=== PATIENT | male | born 1955 ===

== ENCOUNTER 2018-03-03 09:53 | Inpatient (IN) ==
[2018-03-04] MEDS ORDERED: DEXTROSE 50% 25 GM/50 ML SYRINGE IV PRN (11:03)
[2018-03-04] MEDS ORDERED: GLUCAGON 1 MG VIAL IM PRN (11:05)
[2018-03-04] MEDS: SODIUM CHLORIDE 0.9% 1,000 ML IV SCH (11:15)
[2018-03-04] MEDS: tiZANidine 4 MG TABLET PO SCH ×3 (11:15→17:36)
[2018-03-04] MEDS ORDERED: ZALEPLON 5 MG CAPSULE PO PRN (17:39)
[2018-03-04] MEDS: INSULIN REGULAR 100 UNIT/ML SUBCUT SCH (21:52)
[2018-03-05] MEDS: tiZANidine 4 MG TABLET PO SCH ×4 (06:21→17:54)
[2018-03-05] MEDS: INSULIN REGULAR 100 UNIT/ML SUBCUT SCH ×4 (07:35→21:10)
[2018-03-05] MEDS: SIMVASTATIN 20 MG TABLET PO SCH (09:17)
[2018-03-05] MEDS: TAMSULOSIN 0.4 MG CAPSULE PO SCH (09:17)
[2018-03-05] MEDS: LISINOPRIL 20 MG TABLET PO SCH (09:17)
[2018-03-05 10:29] LABS: Basophils % 0.7 % (0.0-0.8); Eosinophils # 0.3 10*3/uL (0.0-0.87); Eosinophils % 4.9 % (0.00-10.9); Hematocrit 35.2 VOL% (42.0-52.0); Hemoglobin 11.2 GM/DL (14.0-18.0); Immature Granulocytes % 0.3 %; Immature Granulocytes Absolute 0.02 #; Lymphocytes # 1.2 10*3/uL (1.4-4.0); Lymphocytes % 19.8 % (21.2-54.2); Mean Corpuscular HGB Conc 31.8 GM/DL (32-36); Mean Corpuscular Hemoglobin 27 PG (27-34); Mean Corpuscular Volume 83.6 FL (87-102); Mean Platelet Volume 9.5 FL (9.6-12.0); Monocytes # 0.6 10*3/uL (0.11-0.8); Monocytes % 10.3 % (1.7-12.7); Neutrophils # 3.9 10*3/uL (1.4-7.4); Platelet Count 223 T/CUMM (130-400); Red Blood Count 4.21 MC/CUMM (3.8-5.5); Red Cell Distribution Width 13.3 % (9.3-17.3); White Blood Count 6.1 T/CUMM (4-12)
[2018-03-05 11:00] LABS: Albumin 3.2 G/DL (3.4-5.0); Bilirubin,Total 0.6 MG/DL (0.2-1.0); Calcium 8.1 MG/DL (8.5-10.1); Osmolality,Calculated 280.7 MOS/KG (273-304); Potassium 3.9 MMOL/L (3.5-5.1); Total Protein 6.8 G/DL (6.4-8.3)
[2018-03-05 11:01] LABS: ABG Base Excess -0.5 MMOL/L (-2.5-2.5); ABG HCO3 23.9 MMOL/L (20-26); ABG Oxygen Saturation 94.7 % (95-100); ABG PCO2 34.6 MM HG (35-48); ABG PH 7.434 (7.35-7.45); ABG PO2 74.1 MM HG (80-95); ABG TCO2 20.6 MMOL/L (23-27); Pt O2 Delivery Device Room Air
[2018-03-05] MEDS ORDERED: ENOXAPARIN 40 MG/0.4 ML SYRINGE SUBCUT SCH (11:30)
[2018-03-05] MEDS: SODIUM CHLORIDE 0.9% 1,000 ML IV SCH (11:59)
[2018-03-06] MEDS: tiZANidine 4 MG TABLET PO SCH ×4 (00:14→18:03)
[2018-03-06] MEDS: INSULIN REGULAR 100 UNIT/ML SUBCUT SCH ×4 (09:05→21:29)
[2018-03-06] MEDS: TAMSULOSIN 0.4 MG CAPSULE PO SCH (09:07)
[2018-03-06] MEDS: SIMVASTATIN 20 MG TABLET PO SCH (09:07)
[2018-03-06] MEDS: LISINOPRIL 20 MG TABLET PO SCH (09:07)
[2018-03-06] MEDS: SODIUM CHLORIDE 0.9% 1,000 ML IV SCH (12:35)
[2018-03-07] MEDS: tiZANidine 4 MG TABLET PO SCH ×5 (00:36→23:43)
[2018-03-07] MEDS: LISINOPRIL 20 MG TABLET PO SCH (08:58)
[2018-03-07] MEDS: INSULIN REGULAR 100 UNIT/ML SUBCUT SCH ×4 (08:58→21:44)
[2018-03-07] MEDS: TAMSULOSIN 0.4 MG CAPSULE PO SCH (08:58)
[2018-03-07] MEDS: SIMVASTATIN 20 MG TABLET PO SCH (08:58)
[2018-03-07] MEDS: CHLORHEXIDINE 0.12% ORAL RINSE 60 ML BOTTLE SWISH/SPIT SCH ×2 (09:00→21:45)
[2018-03-07] MEDS: SODIUM CHLORIDE 0.9% 1,000 ML IV SCH (12:14)
[2018-03-07] MEDS: CHLORHEXIDINE 4% SOLN 118 ML BOTTLE TOP SCH ×2 (15:05→21:42)
[2018-03-07] MEDS ORDERED: CLORAZEPATE 7.5 MG TABLET PO ONE (20:36)
[2018-03-08] MEDS ORDERED: VANCOMYCIN 1,000 MG VIAL ONE (04:44)
[2018-03-08] MEDS ORDERED: PAPAVERINE 60 MG/2 ML VIAL ONE (04:44)
[2018-03-08] MEDS ORDERED: CEFUROXIME INJ 1,500 MG in SYRINGE 1 EACH IV ONE (05:00)
[2018-03-08] MEDS ORDERED: PHENYLEPHRINE DRIP 20 MG/250 ML PREMIX IV ONE (05:57)
[2018-03-08] MEDS ORDERED: HEPARIN/NACL 0.9% 2 UNITS/ML 500 ML IV ONE (05:57)
[2018-03-08] MEDS ORDERED: SUFentanil 250 MCG/5 ML AMP ONE (05:58)
[2018-03-08] MEDS ORDERED: NITROGLYCERIN DRIP 50 MG/250 ML BOTTLE IV ONE (05:58)
[2018-03-08] MEDS ORDERED: MIDAZOLAM 10 MG/2 ML VIAL ONE (05:58)
[2018-03-08] MEDS ORDERED: AMINOCAPROIC ACID 5,000 MG/20 ML VIAL ONE (05:58)
[2018-03-08] MEDS ORDERED: LORazepam 1 MG TABLET PO ONE (06:00)
[2018-03-08] MEDS: tiZANidine 4 MG TABLET PO SCH (06:48)
[2018-03-08 07:50] LABS: ABG HCO3 21.8 MMOL/L (20-26); ABG Oxygen Saturation 93.5 % (95-100); ABG PCO2 44.2 MM HG (35-48); ABG PH 7.325 (7.35-7.45); ABG PO2 75.4 MM HG (80-95); ABG TCO2 20.8 MMOL/L (23-27); Glucose Heart Surgery 198 MG/DL (74-106); Hematocrit Heart Surgery 34.1 PERCENT (42-52); Hemoglobin Heart Surgery 11.1 G/DL (14.0-18.0); Ionized Calcium Arterial 1.13 MMOL/L (1.21-1.46); PCO2 Patient Temp Arterial 44.2 MMHG; PH Patient Temp Arterial 7.325; PO2 Patient Temp Arterial 75.4 MM HG; Patient Temperature 37 CELCIUS; Potassium Heart/CVR 3.7 MMOL/L (3.5-5.1); Sodium Heart/CVR 138 MMOL/L (135-145)
[2018-03-08 08:48] LABS: Apearance,Urine CLEAR (Clear); Bilirubin,Urine Negative (Negative); Blood, Urine Negative (Negative); Glucose,Urine (UA) Negative (Negative); Ketones,Urine Negative (Negative); Mucus,Urine Occasional /LPF (Occasional); Nitrite,Urine Negative (Negative); Protein,Urine 100 MG/DL; RBC,Urine 1 /HPF (0-4); Urine Color Yellow (Yellow); Urine Specific Gravity 1.015 (1.001-1.035); Urine Urobilinogen < 2.0 EU/DL (0.2-1.0); WBC,Urine <1 /HPF (0-6)
[2018-03-08] MEDS ORDERED: CALCIUM CHLORIDE 1,000 MG/10 ML SYRINGE IV ONE (09:08)
[2018-03-08] MEDS ORDERED: PHENYLEPHRINE DRIP 40 MG/250 ML PREMIX IV ONE (09:08)
[2018-03-08] MEDS ORDERED: POTASSIUM CHLORIDE RIDER 100 ML IV ONE (09:08)
[2018-03-08] MEDS ORDERED: NITROPRUSSIDE 50 MG/2 ML VIAL ONE (09:08)
[2018-03-08] MEDS ORDERED: ALBUMIN 5% 12.5 GM/250 ML VIAL IV ONE (09:09)
[2018-03-08] MEDS ORDERED: EPINEPHrine 1 MG/10 ML SYRINGE ONE (09:09)
[2018-03-08 09:18] LABS: Hematocrit Heart Surgery 23.6 PERCENT (42-52); Hemoglobin Heart Surgery 7.6 G/DL (14.0-18.0); PCO2 Patient Temp Venous 34.9 MM HG; PH Patient Temp Venous 7.425; PO2 Patient Temp Venous 37.8 MM HG; Potassium Heart/CVR 4.7 MMOL/L (3.5-5.1); VBG HCO3 23.3 MEQ/L (24-28); VBG Oxygen Saturation 77.1 %; VBG PCO2 38.5 MMHG (41-51); VBG PH 7.396; VBG PO2 43.4 MMHG (17-40)
[2018-03-08] MEDS: INSULIN REGULAR 100 UNIT/ML SUBCUT SCH ×2 (09:47→12:18)
[2018-03-08] MEDS: TAMSULOSIN 0.4 MG CAPSULE PO SCH (09:47)
[2018-03-08] MEDS: SIMVASTATIN 20 MG TABLET PO SCH (09:48)
[2018-03-08] MEDS: CHLORHEXIDINE 4% SOLN 118 ML BOTTLE TOP SCH (09:48)
[2018-03-08] MEDS: CHLORHEXIDINE 0.12% ORAL RINSE 60 ML BOTTLE SWISH/SPIT SCH ×2 (09:48→20:26)
[2018-03-08] MEDS: LISINOPRIL 20 MG TABLET PO SCH (09:48)
[2018-03-08 09:49] LABS: Hematocrit Heart Surgery 23.9 PERCENT (42-52); Hemoglobin Heart Surgery 7.7 G/DL (14.0-18.0); PCO2 Patient Temp Venous 31.8 MM HG; PH Patient Temp Venous 7.45; Potassium Heart/CVR 4.6 MMOL/L (3.5-5.1); VBG Base Excess -1.3 MEQ/L (0-4); VBG Oxygen Saturation 77.9 %; VBG PCO2 36.8 MMHG (41-51); VBG PH 7.406; VBG PO2 44.3 MMHG (17-40)
[2018-03-08 10:21] LABS: Hematocrit Heart Surgery 23.6 PERCENT (42-52); Hemoglobin Heart Surgery 7.6 G/DL (14.0-18.0); PCO2 Patient Temp Venous 32.8 MM HG; PH Patient Temp Venous 7.425; PO2 Patient Temp Venous 36.9 MM HG; Potassium Heart/CVR 4.4 MMOL/L (3.5-5.1); VBG Base Excess -2.4 MEQ/L (0-4); VBG HCO3 22.1 MEQ/L (24-28); VBG PCO2 34.4 MMHG (41-51); VBG PH 7.41; VBG PO2 39.6 MMHG (17-40)
[2018-03-08] MEDS ORDERED: MAGNESIUM SULFATE 10 GM/20 ML VIAL IV ONE (10:48)
[2018-03-08] MEDS ORDERED: ALBUMIN 25% 25 GM/100 ML VIAL IV ONE (10:48)
[2018-03-08] MEDS ORDERED: HEPARIN 10,000 UNIT/10 ML VIAL ONE (10:48)
[2018-03-08] MEDS ORDERED: DEXTROSE 5% KCL 20 MEQ 20 MEQ/1,000 ML BAG IV ONE (10:48)
[2018-03-08] MEDS ORDERED: PROTAMINE SULFATE 250 MG/25 ML VIAL IV ONE (10:48)
[2018-03-08] MEDS ORDERED: SODIUM BICARBONATE 50 MEQ/50 ML SYRINGE IV ONE (10:48)
[2018-03-08] MEDS ORDERED: methylPREDNISolone SOD SUC 1,000 MG/8 ML VIAL ONE (10:48)
[2018-03-08] MEDS ORDERED: MANNITOL 12.5 GM/50 ML VIAL IV ONE (10:48)
[2018-03-08] MEDS ORDERED: FUROSEMIDE 20 MG/2 ML VIAL ONE (10:49)
[2018-03-08] MEDS ORDERED: PROTAMINE SULFATE 50 MG/5 ML VIAL IV ONE ×3 (10:49→11:56)
[2018-03-08 10:55] LABS: ABG Base Excess -3.4 MMOL/L (-2.5-2.5); ABG HCO3 21.6 MMOL/L (20-26); ABG Oxygen Saturation 98.9 % (95-100); ABG PCO2 39.3 MM HG (35-48); ABG PH 7.353 (7.35-7.45); ABG TCO2 20.6 MMOL/L (23-27); Glucose Heart Surgery 273 MG/DL (74-106); Hematocrit Heart Surgery 23.1 PERCENT (42-52); Hemoglobin Heart Surgery 7.4 G/DL (14.0-18.0); Ionized Calcium Arterial 1.29 MMOL/L (1.21-1.46); PCO2 Patient Temp Arterial 39.3 MMHG; PH Patient Temp Arterial 7.353; Patient Temperature 37 CELCIUS; Potassium Heart/CVR 3.7 MMOL/L (3.5-5.1); Sodium Heart/CVR 136 MMOL/L (135-145)
[2018-03-08] MEDS ORDERED: MIDAZOLAM 10 MG/2 ML VIAL IV PRN (11:49)
[2018-03-08] MEDS ORDERED: INSULIN REGULAR 100 UNIT/ML IV PRN (11:49)
[2018-03-08] MEDS ORDERED: VECURONIUM 10 MG VIAL IV PRN ×2 (11:49)
[2018-03-08] MEDS ORDERED: PHENYLEPHRINE DRIP 40 MG/250 ML PREMIX IV PRN (11:49)
[2018-03-08] MEDS ORDERED: NITROPRUSSIDE 100 MG in DEXTROSE 5% 250 ML IV PRN (11:49)
[2018-03-08] MEDS ORDERED: POTASSIUM CHLORIDE RIDER 10 MEQ in PREMIX 1 EACH IV PRN (11:49)
[2018-03-08] MEDS ORDERED: MAGNESIUM SULF RIDER 2 GM in PREMIX 1 EACH IV PRN (11:49)
[2018-03-08] MEDS ORDERED: ACETAMINOPHEN 650 MG SUPP RECTAL PRN (11:49)
[2018-03-08] MEDS ORDERED: MORPHINE 10 MG/1 ML VIAL IV PRN (11:49)
[2018-03-08] MEDS ORDERED: CALCIUM CHLORIDE 1,000 MG/10 ML SYRINGE IV PRN (11:49)
[2018-03-08] MEDS ORDERED: LACTATED RINGERS 250 ML IV PRN (11:49)
[2018-03-08] MEDS ORDERED: ONDANSETRON 4 MG/2 ML VIAL IV PRN (11:49)
[2018-03-08] MEDS ORDERED: MAGNESIUM SULF RIDER 4 GM in PREMIX 1 EACH IV PRN (11:49)
[2018-03-08] MEDS ORDERED: INSULIN REGULAR 100 UNIT/ML IV ONE ×2 (11:49→12:30)
[2018-03-08] MEDS ORDERED: DEXTROSE 50% 25 GM/50 ML VIAL IV PRN ×2 (11:49)
[2018-03-08 11:53] LABS: Basophils % 0.1 % (0.0-0.8); Eosinophils # 0.1 10*3/uL (0.0-0.87); Eosinophils % 0.7 % (0.00-10.9); Hematocrit 26.2 VOL% (42.0-52.0); Immature Granulocytes % 0.5 %; Immature Granulocytes Absolute 0.04 #; Lymphocytes % 11.5 % (21.2-54.2); Mean Corpuscular HGB Conc 32.1 GM/DL (32-36); Mean Corpuscular Hemoglobin 27 PG (27-34); Mean Corpuscular Volume 84.2 FL (87-102); Mean Platelet Volume 9.5 FL (9.6-12.0); Monocytes # 0.4 10*3/uL (0.11-0.8); Monocytes % 5.2 % (1.7-12.7); Red Cell Distribution Width 13.5 % (9.3-17.3)
[2018-03-08 11:53] LABS: ABG Base Excess -1.6 MMOL/L (-2.5-2.5); ABG Oxygen Saturation 95.7 % (95-100); ABG PCO2 40.9 MM HG (35-48); ABG PH 7.369 (7.35-7.45); ABG PO2 81.8 MM HG (80-95); ABG TCO2 21.8 MMOL/L (23-27); Glucose Heart Surgery 271 MG/DL (74-106); Hematocrit Heart Surgery 27.5 PERCENT (42-52); Hemoglobin Heart Surgery 8.9 G/DL (14.0-18.0); Potassium Heart/CVR 3.7 MMOL/L (3.5-5.1)
[2018-03-08] MEDS ORDERED: ePHEDrine 50 MG/ML AMP ONE (11:53)
[2018-03-08] MEDS ORDERED: ETOMIDATE 40 MG/20 ML VIAL IV ONE (11:53)
[2018-03-08] MEDS ORDERED: ROCURONIUM 100 MG/10 ML VIAL IV ONE (11:53)
[2018-03-08] MEDS ORDERED: LIDOCAINE 1% 5 ML VIAL ONE (11:53)
[2018-03-08] MEDS ORDERED: MINERAL OIL/PETROLATUM OPH OINT 3.5 GM TUBE ONE (11:53)
[2018-03-08] MEDS ORDERED: SEVOFLURANE 1 UNIT/15 MINUTE INH ONE (11:53)
[2018-03-08] MEDS ORDERED: SODIUM CHLORIDE 0.9% 250 ML IV ONE (11:54)
[2018-03-08] MEDS ORDERED: SODIUM CHLORIDE 0.9% 100 ML IV ONE (11:54)
[2018-03-08] MEDS ORDERED: SODIUM CHLORIDE 0.9% 1,000 ML IV ONE (11:54)
[2018-03-08] MEDS ORDERED: PHENYLEPHRINE 1 MG/10 ML SYRINGE IV ONE (11:54)
[2018-03-08] MEDS ORDERED: CALCIUM CHLORIDE 1,000 MG/10 ML VIAL IV ONE (11:55)
[2018-03-08 11:59] LABS: Hemoglobin 8.4 GM/DL (14.0-18.0); Platelet Count 189 T/CUMM (130-400); Red Blood Count 3.11 MC/CUMM (3.8-5.5); White Blood Count 8.5 T/CUMM (4-12)
[2018-03-08] MEDS ORDERED: INSULIN REGULAR DRIP 100 ML IV SCH (12:00)
[2018-03-08] MEDS ORDERED: SODIUM CHLORIDE 0.45% 1,000 ML IV SCH ×2 (12:00)
[2018-03-08 12:02] LABS: INR 1.1; PT Patient Result 11.5 SECS
[2018-03-08] MEDS: POTASSIUM CHLORIDE RIDER 20 MEQ in PREMIX 1 EACH IV PRN ×4 (12:11→20:59)
[2018-03-08] MEDS: SODIUM CHLORIDE 0.9% 1,000 ML IV SCH (12:17)
[2018-03-08] MEDS ORDERED: LACTATED RINGERS 1,000 ML IV PRN (12:17)
[2018-03-08 12:22] LABS: CKMB % 4.7 %
[2018-03-08 12:28] LABS: Albumin 2.6 G/DL (3.4-5.0); Bilirubin,Total 0.6 MG/DL (0.2-1.0); Calcium 8.5 MG/DL (8.5-10.1); Osmolality,Calculated 289.3 MOS/KG (273-304); Potassium 3.8 MMOL/L (3.5-5.1); Total Protein 4.7 G/DL (6.4-8.3)
[2018-03-08 12:30] LABS: Troponin I 7.12 NG/ML (0.00-0.045)
[2018-03-08] MEDS ORDERED: DEXTROSE 50% 25 GM/50 ML SYRINGE IV PRN ×2 (12:30)
[2018-03-08] MEDS: KETOROLAC 30 MG/1 ML VIAL IV SCH ×2 (12:51→18:38)
[2018-03-08 12:59] LABS: ABG Base Excess -2.8 MMOL/L (-2.5-2.5); ABG HCO3 22.1 MMOL/L (20-26); ABG PCO2 39.7 MM HG (35-48); ABG PH 7.359 (7.35-7.45); ABG TCO2 20.3 MMOL/L (23-27); Glucose Heart Surgery 267 MG/DL (74-106); Hematocrit Heart Surgery 32.2 PERCENT (42-52); Hemoglobin Heart Surgery 10.4 G/DL (14.0-18.0); Potassium Heart/CVR 3.9 MMOL/L (3.5-5.1)
[2018-03-08] MEDS: ALBUMIN 5% 12.5 GM in PREMIX 1 EACH IV PRN ×3 (13:09→17:12)
[2018-03-08 15:13] LABS: ABG Base Excess -1.5 MMOL/L (-2.5-2.5); ABG HCO3 23.2 MMOL/L (20-26); ABG Oxygen Saturation 97.5 % (95-100); ABG PCO2 37.9 MM HG (35-48); ABG PH 7.393 (7.35-7.45); ABG PO2 96.6 MM HG (80-95); ABG TCO2 21.2 MMOL/L (23-27); Glucose Heart Surgery 180 MG/DL (74-106); Hematocrit Heart Surgery 28.9 PERCENT (42-52); Hemoglobin Heart Surgery 9.3 G/DL (14.0-18.0)
[2018-03-08] MEDS: MIDAZOLAM 2 MG/2 ML VIAL IV PRN ×2 (16:59→23:22)
[2018-03-08 17:00] LABS: ABG Base Excess -1.1 MMOL/L (-2.5-2.5); ABG HCO3 23.5 MMOL/L (20-26); ABG Oxygen Saturation 98.5 % (95-100); ABG TCO2 21.4 MMOL/L (23-27); Glucose Heart Surgery 152 MG/DL (74-106); Hematocrit Heart Surgery 32.2 PERCENT (42-52); Hemoglobin Heart Surgery 10.4 G/DL (14.0-18.0); Potassium Heart/CVR 4.4 MMOL/L (3.5-5.1)
[2018-03-08] MEDS: MORPHINE 4 MG/1 ML VIAL IV PRN ×2 (18:09→22:28)
[2018-03-08] MEDS: CEFUROXIME INJ 1,500 MG in SODIUM CHLORIDE 0.9% 100 ML IV SCH (19:38)
[2018-03-08 20:51] LABS: ABG Base Excess -2.7 MMOL/L (-2.5-2.5); ABG HCO3 22.2 MMOL/L (20-26); ABG Oxygen Saturation 97.5 % (95-100); ABG PCO2 38.3 MM HG (35-48); ABG PH 7.372 (7.35-7.45); ABG TCO2 19.3 MMOL/L (23-27); Glucose Heart Surgery 182 MG/DL (74-106); Hematocrit Heart Surgery 41.9 PERCENT (42-52); Hemoglobin Heart Surgery 13.6 G/DL (14.0-18.0); Potassium Heart/CVR 4.2 MMOL/L (3.5-5.1)
[2018-03-08 21:24] LABS: Troponin I 6.59 NG/ML (0.00-0.045)
[2018-03-09] MEDS ORDERED: FUROSEMIDE 40 MG/4 ML VIAL IV ONE
[2018-03-09] MEDS: KETOROLAC 30 MG/1 ML VIAL IV SCH ×4 (00:16→17:59)
[2018-03-09 00:41] LABS: ABG Base Excess -1.4 MMOL/L (-2.5-2.5); ABG HCO3 23.3 MMOL/L (20-26); ABG Oxygen Saturation 98.8 % (95-100); ABG PCO2 36.3 MM HG (35-48); ABG PH 7.408 (7.35-7.45); ABG TCO2 20.9 MMOL/L (23-27); Glucose Heart Surgery 111 MG/DL (74-106); Hematocrit Heart Surgery 30.5 PERCENT (42-52); Hemoglobin Heart Surgery 9.9 G/DL (14.0-18.0); Potassium Heart/CVR 4.2 MMOL/L (3.5-5.1)
[2018-03-09] MEDS: MORPHINE 4 MG/1 ML VIAL IV PRN (01:48)
[2018-03-09 04:07] LABS: ABG Base Excess -4.6 MMOL/L (-2.5-2.5); ABG HCO3 20.5 MMOL/L (20-26); ABG PCO2 37.9 MM HG (35-48); ABG PH 7.352 (7.35-7.45); ABG PO2 84.6 MM HG (80-95); ABG TCO2 21.7 MMOL/L (23-27); Glucose Heart Surgery 155 MG/DL (74-106); Hemoglobin Heart Surgery 10.8 G/DL (14.0-18.0); Potassium Heart/CVR 4.7 MMOL/L (3.5-5.1)
[2018-03-09 04:12] LABS: Basophils % 0.2 % (0.0-0.8); Hematocrit 31.3 VOL% (42.0-52.0); Hemoglobin 10.1 GM/DL (14.0-18.0); Immature Granulocytes % 0.5 %; Immature Granulocytes Absolute 0.06 #; Lymphocytes # 0.6 10*3/uL (1.4-4.0); Lymphocytes % 5.1 % (21.2-54.2); Mean Corpuscular HGB Conc 32.3 GM/DL (32-36); Mean Corpuscular Hemoglobin 27 PG (27-34); Mean Corpuscular Volume 84.4 FL (87-102); Mean Platelet Volume 9.8 FL (9.6-12.0); Monocytes # 0.8 10*3/uL (0.11-0.8); Monocytes % 6.7 % (1.7-12.7); Neutrophils % 87.5 % (38.7-73.9); Platelet Count 179 T/CUMM (130-400); Red Blood Count 3.71 MC/CUMM (3.8-5.5); Red Cell Distribution Width 14.3 % (9.3-17.3); White Blood Count 12.5 T/CUMM (4-12)
[2018-03-09 04:23] LABS: CKMB % 2.6 %
[2018-03-09 04:26] LABS: Troponin I 5.45 NG/ML (0.00-0.045)
[2018-03-09 04:32] LABS: Albumin 3.7 G/DL (3.4-5.0); Bilirubin,Direct 0.18 MG/DL (0.0-0.20); Bilirubin,Total 0.6 MG/DL (0.2-1.0); Calcium 8.5 MG/DL (8.5-10.1); Osmolality,Calculated 285.3 MOS/KG (273-304); Potassium 4.8 MMOL/L (3.5-5.1)
[2018-03-09 05:46] LABS: ABG Base Excess -5.1 MMOL/L (-2.5-2.5); ABG HCO3 20.1 MMOL/L (20-26); ABG Oxygen Saturation 96.3 % (95-100); ABG PH 7.342 (7.35-7.45); ABG PO2 87.5 MM HG (80-95); ABG TCO2 18.2 MMOL/L (23-27); Glucose Heart Surgery 167 MG/DL (74-106); Hematocrit Heart Surgery 32.3 PERCENT (42-52); Hemoglobin Heart Surgery 10.5 G/DL (14.0-18.0); Potassium Heart/CVR 4.5 MMOL/L (3.5-5.1)
[2018-03-09] MEDS ORDERED: INFLUENZA VIRUS VACCINE 0.5 ML SYRINGE IM ONE (09:00)
[2018-03-09] MEDS: CEFUROXIME INJ 1,500 MG in SODIUM CHLORIDE 0.9% 100 ML IV SCH (09:21)
[2018-03-09] MEDS ORDERED: GLUCAGON 1 MG VIAL IM PRN ×3 (09:29→10:00)
[2018-03-09] MEDS ORDERED: DEXTROSE 50% 25 GM/50 ML VIAL IV PRN ×2 (09:29→10:00)
[2018-03-09] MEDS ORDERED: MAGNESIUM HYDROXIDE SUSP 30 ML UDCUP PO PRN (10:00)
[2018-03-09] MEDS ORDERED: ALUMINUM/MAGNES/SIMETH MAX STR 30 ML UDCUP PO PRN (10:00)
[2018-03-09] MEDS ORDERED: POTASSIUM CHLORIDE 20 MEQ TABLET PO PRN (10:00)
[2018-03-09] MEDS ORDERED: ACETAMINOPHEN 325 MG TABLET PO PRN (10:00)
[2018-03-09] MEDS ORDERED: MAGNESIUM SULF RIDER 2 GM in PREMIX 1 EACH IV PRN (10:00)
[2018-03-09] MEDS ORDERED: MAGNESIUM SULF RIDER 4 GM in PREMIX 1 EACH IV PRN (10:00)
[2018-03-09] MEDS ORDERED: ZALEPLON 5 MG CAPSULE PO PRN (10:00)
[2018-03-09] MEDS ORDERED: ONDANSETRON 4 MG/2 ML VIAL IV PRN (10:00)
[2018-03-09] MEDS ORDERED: DEXTROSE 50% 25 GM/50 ML SYRINGE IV PRN (10:00)
[2018-03-09] MEDS ORDERED: SODIUM CHLOR 0.45% KCL 20 MEQ 20 MEQ/1,000 ML BAG IV SCH (10:00)
[2018-03-09] MEDS ORDERED: LOPERAMIDE 2 MG CAPSULE PO PRN (10:30)
[2018-03-09] MEDS: ATORVASTATIN 40 MG TABLET PO SCH (10:40)
[2018-03-09] MEDS: ASPIRIN EC 325 MG TABLET PO SCH (10:40)
[2018-03-09] MEDS: amLODIPine 5 MG TABLET PO SCH (10:41)
[2018-03-09] MEDS: PANTOPRAZOLE 40 MG TABLET PO SCH (10:41)
[2018-03-09] MEDS: LISINOPRIL 20 MG TABLET PO SCH (10:42)
[2018-03-09] MEDS: LACTOBACILLUS ACIDOPHILUS/BULGARICUS CAPLET PO SCH (10:42)
[2018-03-09] MEDS: SIMVASTATIN 20 MG TABLET PO SCH (10:43)
[2018-03-09] MEDS: TAMSULOSIN 0.4 MG CAPSULE PO SCH (10:43)
[2018-03-09] MEDS: CHLORHEXIDINE 0.12% ORAL RINSE 60 ML BOTTLE SWISH/SPIT SCH ×2 (12:43→22:10)
[2018-03-09] MEDS ORDERED: CEFUROXIME INJ 1,500 MG in SYRINGE 1 EACH IV ONE (20:00)
[2018-03-09] MEDS: INSULIN REGULAR 100 UNIT/ML SUBCUT SCH (20:17)
[2018-03-09] MEDS: INSULIN GLARGINE 100 UNIT/ML SUBCUT SCH (22:10)
[2018-03-10] MEDS: INSULIN REGULAR 100 UNIT/ML SUBCUT SCH ×6 (00:24→20:15)
[2018-03-10] MEDS: KETOROLAC 30 MG/1 ML VIAL IV SCH ×4 (03:21→20:01)
[2018-03-10 05:33] LABS: Basophils % 0.2 % (0.0-0.8); Hematocrit 27.7 VOL% (42.0-52.0); Hemoglobin 8.8 GM/DL (14.0-18.0); Immature Granulocytes % 0.6 %; Immature Granulocytes Absolute 0.06 #; Lymphocytes # 1.2 10*3/uL (1.4-4.0); Lymphocytes % 11.5 % (21.2-54.2); Mean Corpuscular HGB Conc 31.8 GM/DL (32-36); Mean Corpuscular Hemoglobin 27 PG (27-34); Mean Corpuscular Volume 85.2 FL (87-102); Mean Platelet Volume 10.5 FL (9.6-12.0); Monocytes # 0.8 10*3/uL (0.11-0.8); Monocytes % 7.9 % (1.7-12.7); Neutrophils # 8.2 10*3/uL (1.4-7.4); Neutrophils % 79.8 % (38.7-73.9); Platelet Count 189 T/CUMM (130-400); Red Blood Count 3.25 MC/CUMM (3.8-5.5); Red Cell Distribution Width 14.5 % (9.3-17.3); White Blood Count 10.3 T/CUMM (4-12)
[2018-03-10 05:58] LABS: Albumin 3.1 G/DL (3.4-5.0); Bilirubin,Direct 0.11 MG/DL (0.0-0.20); Bilirubin,Indirect 0.3 MG/DL (0.0-1.0); Bilirubin,Total 0.4 MG/DL (0.2-1.0); Osmolality,Calculated 291.4 MOS/KG (273-304); Potassium 4.2 MMOL/L (3.5-5.1); Total Protein 5.9 G/DL (6.4-8.3)
[2018-03-10] MEDS ORDERED: FUROSEMIDE 40 MG/4 ML VIAL IV ONE (06:00)
[2018-03-10 06:03] LABS: Troponin I 2.16 NG/ML (0.00-0.045)
[2018-03-10] MEDS: oxyCODONE/ACETAMINOPHEN 5-325 MG TABLET PO PRN (07:44)
[2018-03-10] MEDS: DOCUSATE SODIUM 100 MG CAPSULE PO SCH (08:38)
[2018-03-10] MEDS: PANTOPRAZOLE 40 MG TABLET PO SCH (08:38)
[2018-03-10] MEDS: ATORVASTATIN 40 MG TABLET PO SCH (08:38)
[2018-03-10] MEDS: LACTOBACILLUS ACIDOPHILUS/BULGARICUS CAPLET PO SCH (08:38)
[2018-03-10] MEDS: SIMVASTATIN 20 MG TABLET PO SCH (08:38)
[2018-03-10] MEDS: LISINOPRIL 20 MG TABLET PO SCH (08:38)
[2018-03-10] MEDS: FERROUS SULFATE 325 MG TABLET PO SCH (08:38)
[2018-03-10] MEDS: TAMSULOSIN 0.4 MG CAPSULE PO SCH (08:39)
[2018-03-10] MEDS: ASPIRIN EC 325 MG TABLET PO SCH (08:39)
[2018-03-10] MEDS: amLODIPine 5 MG TABLET PO SCH (08:39)
[2018-03-10] MEDS: CHLORHEXIDINE 0.12% ORAL RINSE 60 ML BOTTLE SWISH/SPIT SCH ×2 (08:44→22:17)
[2018-03-10] MEDS ORDERED: ASPIRIN EC 81 MG TABLET PO SCH (09:00)
[2018-03-10] MEDS: INSULIN GLARGINE 100 UNIT/ML SUBCUT SCH ×2 (09:42→22:17)
[2018-03-10] MEDS: MONTELUKAST 10 MG TABLET PO SCH (09:42)
[2018-03-11] MEDS: INSULIN REGULAR 100 UNIT/ML SUBCUT SCH ×6 (01:15→21:55)
[2018-03-11] MEDS: KETOROLAC 30 MG/1 ML VIAL IV SCH ×2 (01:27→09:12)
[2018-03-11] MEDS: amLODIPine 5 MG TABLET PO SCH (09:00)
[2018-03-11] MEDS ORDERED: LACTULOSE 20 GM/30 ML UDCUP PO PRN (09:20)
[2018-03-11 09:25] LABS: Basophils % 0.2 % (0.0-0.8); Eosinophils # 0.1 10*3/uL (0.0-0.87); Eosinophils % 1.1 % (0.00-10.9); Hematocrit 30.2 VOL% (42.0-52.0); Hemoglobin 9.4 GM/DL (14.0-18.0); Immature Granulocytes % 0.6 %; Immature Granulocytes Absolute 0.05 #; Lymphocytes # 1.7 10*3/uL (1.4-4.0); Mean Corpuscular HGB Conc 31.1 GM/DL (32-36); Mean Corpuscular Hemoglobin 27 PG (27-34); Mean Corpuscular Volume 85.6 FL (87-102); Mean Platelet Volume 10.1 FL (9.6-12.0); Monocytes # 0.8 10*3/uL (0.11-0.8); Monocytes % 9.8 % (1.7-12.7); Neutrophils # 5.7 10*3/uL (1.4-7.4); Neutrophils % 68.3 % (38.7-73.9); Platelet Count 227 T/CUMM (130-400); Red Blood Count 3.53 MC/CUMM (3.8-5.5); Red Cell Distribution Width 14.5 % (9.3-17.3); White Blood Count 8.4 T/CUMM (4-12)
[2018-03-11] MEDS: TAMSULOSIN 0.4 MG CAPSULE PO SCH (09:36)
[2018-03-11] MEDS: LISINOPRIL 20 MG TABLET PO SCH (09:36)
[2018-03-11] MEDS: LACTOBACILLUS ACIDOPHILUS/BULGARICUS CAPLET PO SCH (09:36)
[2018-03-11] MEDS: DOCUSATE SODIUM 100 MG CAPSULE PO SCH (09:37)
[2018-03-11] MEDS: SIMVASTATIN 20 MG TABLET PO SCH (09:37)
[2018-03-11] MEDS: ASPIRIN EC 325 MG TABLET PO SCH (09:37)
[2018-03-11] MEDS: INSULIN GLARGINE 100 UNIT/ML SUBCUT SCH ×2 (09:37→21:57)
[2018-03-11] MEDS: FERROUS SULFATE 325 MG TABLET PO SCH (09:37)
[2018-03-11] MEDS: MONTELUKAST 10 MG TABLET PO SCH (09:37)
[2018-03-11] MEDS: PANTOPRAZOLE 40 MG TABLET PO SCH (09:37)
[2018-03-11] MEDS: CHLORHEXIDINE 0.12% ORAL RINSE 60 ML BOTTLE SWISH/SPIT SCH ×2 (09:41→21:59)
[2018-03-11] MEDS: ATORVASTATIN 40 MG TABLET PO SCH (09:44)
[2018-03-11 09:52] LABS: Alanine Aminotransferase 33 U/L (16-61); Albumin 3.2 G/DL (3.4-5.0); Alkaline Phosphatase 83 U/L (45-117); Aspartate Amino Transferase 24 U/L (0-37); Bilirubin,Indirect 0.2 MG/DL (0.0-1.0); Blood Urea Nitrogen 22 MG/DL (7-18); Calcium 7.9 MG/DL (8.5-10.1); Glucose 197 MG/DL (74-106); Osmolality,Calculated 286.4 MOS/KG (273-304); Potassium 4.1 MMOL/L (3.5-5.1); Sodium 140 MMOL/L (136-145); Total Protein 6.2 G/DL (6.4-8.3)
[2018-03-11 09:53] LABS: Troponin I 0.975 NG/ML (0.00-0.045)
[2018-03-11] MEDS: oxyCODONE/ACETAMINOPHEN 5-325 MG TABLET PO PRN (22:09)
[2018-03-12] MEDS: INSULIN REGULAR 100 UNIT/ML SUBCUT SCH ×3 (00:30→09:17)
[2018-03-12] MEDS: LISINOPRIL 20 MG TABLET PO SCH (09:14)
[2018-03-12] MEDS: LACTOBACILLUS ACIDOPHILUS/BULGARICUS CAPLET PO SCH (09:14)
[2018-03-12] MEDS: DOCUSATE SODIUM 100 MG CAPSULE PO SCH (09:14)
[2018-03-12] MEDS: MONTELUKAST 10 MG TABLET PO SCH (09:14)
[2018-03-12] MEDS: ASPIRIN EC 325 MG TABLET PO SCH (09:14)
[2018-03-12] MEDS: PANTOPRAZOLE 40 MG TABLET PO SCH (09:14)
[2018-03-12] MEDS: TAMSULOSIN 0.4 MG CAPSULE PO SCH (09:14)
[2018-03-12] MEDS: FERROUS SULFATE 325 MG TABLET PO SCH (09:15)
[2018-03-12] MEDS: SIMVASTATIN 20 MG TABLET PO SCH (09:15)
[2018-03-12] MEDS: amLODIPine 5 MG TABLET PO SCH (09:15)
[2018-03-12] MEDS: INSULIN GLARGINE 100 UNIT/ML SUBCUT SCH (09:15)
[2018-03-12] MEDS: ATORVASTATIN 40 MG TABLET PO SCH (09:15)
[2018-03-12] MEDS: CHLORHEXIDINE 0.12% ORAL RINSE 60 ML BOTTLE SWISH/SPIT SCH (09:18)
[2018-03-12 13:19] VITALS: BP 131/74
== END 2018-03-12 13:30 | disposition home health service (06) | DRG 236 ==
LOC: N.TELES 03-04 09:15 → N.CVR 03-08 09:02 → N.TELES 03-09 12:10

== ENCOUNTER 2019-04-21 02:07 | Observation (INO) ==
[2019-04-21] MEDS ORDERED: NAPROXEN 500 MG TABLET PO PRN (04:38)
[2019-04-21] MEDS ORDERED: GLUCAGON 1 MG VIAL IM PRN (04:40)
[2019-04-21] MEDS ORDERED: DEXTROSE 50% 25 GM/50 ML SYRINGE IV PRN (04:40)
[2019-04-21] MEDS ORDERED: ONDANSETRON 4 MG/2 ML VIAL IV PRN (04:42)
[2019-04-21] MEDS ORDERED: ACETAMINOPHEN 325 MG TABLET PO PRN (04:42)
[2019-04-21] MEDS ORDERED: MORPHINE 4 MG/1 ML VIAL IV PRN (04:42)
[2019-04-21] MEDS ORDERED: NITROGLYCERIN SL 0.4 MG TABLET SL PRN (05:01)
[2019-04-21] MEDS ORDERED: LOPERAMIDE 2 MG CAPSULE PO PRN (05:06)
[2019-04-21 05:48] LABS: Basophils % 0.3 % (0.0-0.8); Eosinophils % 0.4 % (0.00-10.9); Hematocrit 41.7 VOL% (42.0-52.0); Hemoglobin 13.1 GM/DL (14.0-18.0); Immature Granulocytes % 0.3 %; Immature Granulocytes Absolute 0.02 #; Lymphocytes # 1.3 10*3/uL (1.4-4.0); Lymphocytes % 19.9 % (21.2-54.2); Mean Corpuscular HGB Conc 31.4 GM/DL (32-36); Mean Corpuscular Volume 83.2 FL (87-102); Mean Platelet Volume 9.5 FL (9.6-12.0); Monocytes % 7.1 % (1.7-12.7); Platelet Count 268 T/CUMM (130-400); Red Blood Count 5.01 MC/CUMM (3.8-5.5); Red Cell Distribution Width 13.7 % (9.3-17.3); White Blood Count 6.7 T/CUMM (4-12)
[2019-04-21 05:54] LABS: INR 0.9; PT Patient Result 9.7 SECS (9.6-12.2); Partial Thromboplastin Time 25.7 SECS (20.8-36.0)
[2019-04-21] MEDS: ENOXAPARIN 40 MG/0.4 ML SYRINGE SUBCUT SCH (06:08)
[2019-04-21 06:19] LABS: Albumin 3.8 G/DL (3.4-5.0); Bilirubin,Total 0.4 MG/DL (0.2-1.0); Calcium 8.8 MG/DL (8.5-10.1); Osmolality,Calculated 285.8 MOS/KG (273-304); Total Protein 7.7 G/DL (6.4-8.3)
[2019-04-21 06:20] LABS: Troponin I 0.025 NG/ML (0.00-0.045)
[2019-04-21 06:31] LABS: Risk Ratio 4.61; VLDL CHOLESTEROL 28.2 MG/DL
[2019-04-21] MEDS: INSULIN LISPRO 100 UNIT/ML SUBCUT SCH ×4 (08:45→21:50)
[2019-04-21] MEDS: CLOTRIMAZOLE/BETAMETHASONE CREAM 15 GM TUBE TOP SCH ×3 (08:45→21:52)
[2019-04-21] MEDS: INSULIN GLARGINE 100 UNIT/ML SUBCUT SCH (08:46)
[2019-04-21] MEDS: lisinopriL 20 MG TABLET PO SCH (08:46)
[2019-04-21] MEDS: hydroCHLOROthiazide 25 MG TABLET PO SCH (08:47)
[2019-04-21] MEDS: TAMSULOSIN 0.4 MG CAPSULE PO SCH (08:47)
[2019-04-21] MEDS: ATORVASTATIN 40 MG TABLET PO SCH (08:47)
[2019-04-21] MEDS: TRIAMCINOLONE 0.1% CREAM 15 GM TUBE TOP SCH ×2 (08:47→09:09)
[2019-04-21] MEDS: amLODIPine 5 MG TABLET PO SCH (08:47)
[2019-04-21] MEDS: OMEGA 3 ACID ETHYL ESTERS 1 GM CAPSULE PO SCH (08:47)
[2019-04-21] MEDS: ASPIRIN EC 81 MG TABLET PO SCH (08:47)
[2019-04-21] MEDS ORDERED: PANTOPRAZOLE 40 MG TABLET PO SCH (09:00)
[2019-04-21] MEDS: PANTOPRAZOLE 40 MG TABLET PO SCH ×2 (09:00→21:50)
[2019-04-21] MEDS: DOCUSATE SODIUM 100 MG CAPSULE PO SCH ×2 (09:00→21:50)
[2019-04-22] MEDS: ENOXAPARIN 40 MG/0.4 ML SYRINGE SUBCUT SCH (06:08)
[2019-04-22 07:52] VITALS: BP 116/68
[2019-04-22] MEDS: INSULIN LISPRO 100 UNIT/ML SUBCUT SCH (08:58)
[2019-04-22] MEDS: INSULIN GLARGINE 100 UNIT/ML SUBCUT SCH (09:01)
[2019-04-22] MEDS: DOCUSATE SODIUM 100 MG CAPSULE PO SCH (09:02)
[2019-04-22] MEDS: OMEGA 3 ACID ETHYL ESTERS 1 GM CAPSULE PO SCH (09:02)
[2019-04-22] MEDS: lisinopriL 20 MG TABLET PO SCH (09:02)
[2019-04-22] MEDS: ATORVASTATIN 40 MG TABLET PO SCH (09:02)
[2019-04-22] MEDS: hydroCHLOROthiazide 25 MG TABLET PO SCH (09:02)
[2019-04-22] MEDS: amLODIPine 5 MG TABLET PO SCH (09:02)
[2019-04-22] MEDS: TAMSULOSIN 0.4 MG CAPSULE PO SCH (09:02)
[2019-04-22] MEDS: PANTOPRAZOLE 40 MG TABLET PO SCH (09:02)
[2019-04-22] MEDS: ASPIRIN EC 81 MG TABLET PO SCH (09:03)
[2019-04-22] MEDS: CLOTRIMAZOLE/BETAMETHASONE CREAM 15 GM TUBE TOP SCH (09:04)
[2019-04-22] MEDS: TRIAMCINOLONE 0.1% CREAM 15 GM TUBE TOP SCH (09:04)
== END 2019-04-22 10:58 | disposition home or self-care (01) ==
LOC: N.TELEN → SUATTDRO 03:47
PROVIDERS: ADMIT Internal Medicine; ATTEND Internal Medicine